=== PATIENT | male | born 1960 | race African-American/Black ===

== ENCOUNTER 2018-06-08 23:06 | Emergency (ER) | payer OTHER ==
[~2018-06-08] VITALS: Ht 182.9 cm; Wt 97.5 kg
[2018-06-08] MEDS ORDERED: ONDANSETRON HCL 4 MG/2 ML VIAL IV ONE (23:15)
[2018-06-08] MEDS ORDERED: MORPHINE SULFATE 4 MG/ML SYR/VIAL IV ONE (23:15)
[2018-06-09] MEDS ORDERED: ETOMIDATE (2MG/ML) 20ML VIAL IV ONE (00:30)
[2018-06-09 02:08] VITALS: BP 152/110
== END 2018-06-09 02:19 | disposition home or self-care (01) ==
LOC: ER 23:09
DX: S43.004A Unspecified dislocation of right shoulder joint, initial encounter (principal); W11.XXXA Fall on and from ladder, initial encounter; Y93.89 Activity, other specified; Y99.8 Other external cause status; Y92.89 Other specified places as the place of occurrence of the external cause
CPT/HCPCS: 23650; 73020; 73030; 96374; 96375; 99285; J2270; J2405